=== PATIENT | female | born 1960 | race Caucasian/White ===

== ENCOUNTER 2018-05-03 17:47 | Emergency (ER) | payer OTHER ==
--- NOTE | 2018-05-03 18:14 | EDM.PDOC ---
ED HPI GENERAL MEDICAL PROBLEM - General Chief Complaint: Trauma Stated Complaint: HEAD INJURY-FELL OFF HORSE Time Seen by Provider: 05/03/18 18:07 Source of Information: Reports: Patient, Family History Limitations: Reports: No Limitations - History of Present Illness INITIAL COMMENTS - FREE TEXT/NARRATIVE: 57-year-old female patient presents to the ED after essentially being thrown from a horse out in [place]. The first time on a horse. She states the horse his legs seem to give out in the horse tumbled propelling her off of the horse and into the ground directly on the top of her head. She believes it knocked the wind out of her but she never lost consciousness. He has a very tender area on the left parietal occipital lobe of her head. She was placed in a cervical collar upon arrival in the ED. She has pain in her left wrist particularly over the scaphoid area and in her left shoulder over the A-C joint. Onset: Today Onset Date: 05/03/18 Onset Time: 16:40 Duration: Hour(s): Location: Reports: Head, Neck, Lower Extremity, Left (Shoulder and wrist.) Quality: Reports: Ache, Throbbing Severity: Mild (Patient has taken some Tylenol after injury.) Improves with: Reports: Rest Worsens with: Reports: Movement Context: Reports: Trauma (Thrown from a horse when the horse stumbled and lost it spelled propelling her Foote's off the horse directly onto her head i.e. axial traction.). Denies: Activity, Exercise, Lifting, Sick Contact Associated Symptoms: Reports: No Other Symptoms. Denies: Confusion, Chest Pain , Cough, cough w sputum, Diaphoresis, Fever/Chills, Loss of Appetite, Malaise, Nausea/Vomiting, Rash, Seizure, Shortness of Breath, Syncope Treatments [employer]ESSION[employer]: Reports: Acetaminophen Head Pain Score (Numeric/FACES): 7 - Related Data Allergies Allergy/AdvReac Type Severity Reaction Status Date / Time Penicillins Allergy Hives Verified 05/03/18 18:01 droperidol [From Inapsine] AdvReac Tremors Verified 05/04/18 12:44 Home Meds: Home Meds metFORMIN [Glucophage XR] 500 mg PO DAILY 05/03/18 [History] Past Medical History Musculoskeletal History: Reports: Other (See Below) Other Musculoskeletal History: fusion of lower back, fusion of neck Endocrine/Metabolic History: Reports: Diabetes, Type II (Currently on diet and metformin.) - Past Surgical History GI Surgical History: Reports: Cholecystectomy Female Surgical History: Reports: Hysterectomy Musculoskeletal Surgical History: Reports: Other (See Below) Other Musculoskeletal Surgeries/Procedures:: left hip surgery due to tendon issues Social & Family History - Tobacco Use Smoking Status *Q: Never Smoker - Caffeine Use Caffeine Use: Reports: Coffee, Soda - Recreational Drug Use Recreational Drug Use: No Review of Systems - Review of Systems Review Of Systems: See Below Constitutional: Denies: Diaphoresis, Fever, Weakness, Other Eyes: Reports: No Symptoms Ears: Reports: No Symptoms Nose: Reports: No Symptoms Mouth/Throat: Reports: No Symptoms, Other Respiratory: Reports: No Symptoms (Mid did not spit up any blood.) Cardiovascular: Reports: No Symptoms GI/Abdominal: Reports: Other (Occasional problems with GERD.) Genitourinary: Reports: No Symptoms Musculoskeletal: Reports: Back Pain, Joint Pain (Chronic low back pain. Surgery changes knees and hips and neck.) Skin: Reports: No Symptoms Neurological: Reports: No Symptoms Psychiatric: Reports: No Symptoms ED EXAM, GENERAL - Physical Exam Exam: See Below Exam Limited By: No Limitations General Appearance: Alert, WD/WN, Mild Distress, Other (C-collar was placed by triage nurse.) Eye Exam: Right Eye: PERRL (Had some pain on looking to the left and upwards.), Bilateral Eye: Normal Inspection Ears: Normal TMs Throat/Mouth: Normal Inspection, Normal Lips, Normal Teeth, Normal Oropharynx, Other (No injury to her teeth or tongue. Temporomandibular joints and mandible appear to be normal no malocclusion) Head: Other (She is very tender to touch along the parietal occipital lobe on the vertex of the scalp. There is a scalp hematoma present. No open lacerations or bleeding.) Neck: Other (Anterior neck is normal with normal laryngeal crepitus. C-collar has been placed and will not be removed and chills C-spine is cleared by CT exam.). No: Lymphadenopathy (L), Lymphadenopathy (R) Respiratory/Chest: Chest Non-Tender (Mild tachypnea at rest.), Respiratory Distress, Other (Compression of the ribs and sternum did not cause any pain. Clavicles are intact.) Cardiovascular: Normal Peripheral Pulses, Regular Rate, Rhythm, No Edema, No Gallop, No Murmur, No Rub Peripheral Pulses: 2+: Posterior Tibial (L), Posterior Tibial (R), Dorsalis Pedis (L), Dorsalis Pedis (R) GI/Abdominal: Normal Bowel Sounds, Soft, Non-Tender, No Organomegaly, No Abnormal Bruit, No Mass, Pelvis Stable Back Exam: Other (Well-healed multiple scars lower lumbar spine midline. She states she's had 4 separate surgeries on her back. Has no pain in her back or thoracic spine to palpation there is no abrasions or contusions to her back.) Extremities: Other (No injuries to the right upper extremity including the hand the wrist to elbow and the shoulder. On the left there is tenderness at the wrist particularly over the scaphoid bone in the anatomical snuffbox and there is an abrasion and pain over the acromioclavicular joint and superior scapula on the left side.) Neurological: Alert, Oriented, CN II-XII Intact, Normal Cognition, No Motor/ Sensory Deficits Psychiatric: Normal Affect, Normal Mood Skin Exam: Warm, Dry, Intact, Normal Color, No Rash Course - Vital Signs Last Recorded V/S: Last Vital Signs Temp 36.8 C 05/03/18 17:55 Pulse 86 05/03/18 17:55 Resp 20 05/03/18 17:55 BP 168/87 H 05/03/18 17:55 Pulse Ox 98 05/03/18 17:55 - Orders/Labs/Meds Meds: Medications Discontinued Medications Generic Name Dose Route Start Last Admin Trade Name Adali PRN Reason Stop Dose Admin Ondansetron HCl 4 mg 05/03/18 19:10 05/03/18 19:16 Zofran Odt PO 05/03/18 19:11 4 mg ONETIME ONE Administration Oxycodone/Acetaminophen 2 tab 05/03/18 19:09 05/03/18 19:16 Percocet 325-5 Mg PO 05/03/18 19:10 2 tab ONETIME ONE Administration - Radiology Interpretation Free Text/Narrative:: 57-year-old female presents to the ED after being essentially thrown from a horse. Chest first him on a horse out in [place]. She states the horse was riding stumbled and propelled her forward off the horse directly onto her head. There was no loss of consciousness. She states she injured the top part of her left side of her head and she had cervical neck pain upon arrival in the ED therefore she was placed in a c-collar by the triage nurse. She has pain to the left shoulder particularly over the acromioclavicular joint. She has pain in the left distal wrist particularly over the scaphoid bone. No injuries evident to the lower extremities back or ribs. Right upper extremity is also within normal limits. Plan CT head CT cervical spine x-ray left shoulder x-ray left wrist to be done. At the time of my exam she felt she didn't need anything further for pain. - Re-Assessments/Exams Free Text/Narrative Re-Assessment/Exam: 05/03/18 19:10 CT of the head is done. It reveals a left frontal parietal hematoma without any fractures of the skull or intracranial bleeding or mass effect. CT of the cervical spine reveals loss of the normal lordotic curvature. There are no perched or locked facets of the craniocervical relationship is normal there is a fusion at C6-C7 which the patient admits she had bone grafting in this area. There are severe degenerative changes within the spine multilevel bilateral foraminal stenosis. No fractures identified. X-rays of the left shoulder reveal no fractures of the acromioclavicular joint the clavicle or the scaphoid bone. The humeral head is in normal anatomical position without fracture. X-rays of the left wrist reveal no fractures within the hand bones and in particular no scaphoid fracture where she is very tender to touch. Distal radius and ulna are intact. She is having much more pain in her neck at this time. She'll be given Percocet 5/3/25 milligram tabs --2 tabs by mouth now with Zofran 4 mg sublingual to relieve pain and prevent nausea vomiting. Nausea comes in a bit of weight since her injury. She plans on flying home tomorrow. I will give her copies of her x-rays and CT scan to take with her as she is flying home tomorrow. I will write a prescription from the [facility] for Percocet tablets 5/3/25 milligrams strength one or 2 every 4-6 hours needed for pain relief. 20 tablets will be provided. Departure - Departure Time of Disposition: 19:14 Disposition: Home, Self-Care 01 Condition: Fair Clinical Impression: Contusion of left wrist, initial encounter Sprain of cervical neck Qualifiers: Encounter type: initial encounter Qualified Code(s): S13.9XXA - Sprain of joints and ligaments of unspecified parts of neck, initial encounter Contusion of scalp Qualifiers: Encounter type: initial encounter Qualified Code(s): S00.03XA - Contusion of scalp, initial encounter Closed head injury Qualifiers: Encounter type: initial encounter Qualified Code(s): S09.90XA - Unspecified injury of head, initial encounter Contusion of left shoulder Qualifiers: Encounter type: initial encounter Qualified Code(s): S40.012A - Contusion of left shoulder, initial encounter - Discharge Information *PRESCRIPTION DRUG MONITORING PROGRAM REVIEWED*: Not Applicable *COPY OF PRESCRIPTION DRUG MONITORING REPORT IN PATIENT TOREY: Not Applicable Instructions: Contusion, [id number], Head Injury, Adult, [id number] Referrals: PCP,Not In Area [Primary Care Provider] - Forms: ED Department Discharge Additional Instructions: Evaluation in the emergency room today in regards to injuries sustained from a horse accident out in [place]. The horse stumbled and propelled Mae from the back of the horse directly into the ground head first. Landed in a scalp hematoma along the left side of your head. CT does not reveal any skull fractures or intracranial bleeding in the brain. CT of your neck reveals no fractures. There is fusion at C5-C6 from previous bone grafting. There are multilevel degenerative changes in your neck foraminal encroachment of several nerves both sides. No fractures however are identified. X-rays of your left shoulder show no injuries to the acromioclavicular joint the shoulder blade or the humeral head. X-rays of the left wrist also do not reveal any broken bones. Copies of your x-rays and CTs will be sent home with you for your doctor to review if necessary. Expect her neck to be become much more stiff and sore over the next 2-3 days. Then gradual improvement should occur over the next week to 10 days. Rest Aleve 2 tablets every 8 hours to relieve pain and inflammation. Percocet tablets 5/325 milligrams strength one or 2 every 4-6 hours necessary for the next few days until the acute pain settles. Ice pack to the back of your neck one half hour out of every 4 hours for the next 2 days would be worthwhile as well as application to left shoulder if needed.
[2018-05-03] MEDS ORDERED: Acetaminophen/oxyCODONE 325-5 MG Tab PO ONE (19:09)
[2018-05-03] MEDS ORDERED: Ondansetron 4 MG Tab.DIS PO ONE (19:10)
--- NOTE | 2018-05-04 07:09 | CT ---
CT cervical spine Technique: Multiple axial sections were obtained from above C1 inferiorly to the top of T2. Reconstructed sagittal and coronal images were reviewed. Comparison: No prior cervical spine imaging. Findings: Interbody vertebral fusion is seen at C6-C7. Severe disc space narrowing is noted at C4-C5 and C5-C6 with posterior spurring and anterior osteophytes. Scattered degenerative change is noted throughout the apophyseal joints which is worse on the left side. Mild right sided neural foraminal stenosis noted at C3-C4. Moderate to severe neural foraminal stenosis is noted at C4-C5. Mild central canal stenosis is noted at C4-C5. Other neural foramina are patent. No fracture is seen. No abnormal subluxation is noted. Impression: 1. Degenerative change as noted above. 2. Nothing acute is seen on CT study of cervical spine. Diagnostic code #3 I agree with preliminary report issued by [facility] ([facility] preliminary report dictated on 05/03/18, 7:58 PM Central Time)
--- NOTE | 2018-05-04 08:09 | CT ---
Head CT Technique: Multiple axial sections through the brain were obtained. Intravenous contrast was not utilized. Comparison: No previous intracranial imaging. Findings: Ventricles along with basal cisterns and sulci over the convexities are within normal limits for the patient's age. No abnormal parenchymal densities are seen. No evidence of intracranial hemorrhage. No midline shift or mass effect is seen. Bone window settings were reviewed which show no acute calvarial abnormality. Impression: 1. Nothing acute is seen on noncontrast head CT exam. Diagnostic code #1 I agree with preliminary report issued by [facility] ([facility] preliminary report dictated on 05/03/18, 7:52 PM Central Time)
--- NOTE | 2018-05-04 08:09 | CR ---
Left wrist: Four views of the left wrist were obtained as well as navicular view. Comparison: No previous study. Minimal calcification off the tip of the ulnar styloid process is seen which is incidental. Joint spaces are preserved. No fracture or other bony abnormality is seen. Impression: 1. Incidental finding. Nothing acute is seen. Diagnostic code #2
--- NOTE | 2018-05-04 08:09 | CR ---
Left shoulder: Three views of the left shoulder were obtained. Mild joint space narrowing is noted within the acromioclavicular joint. Glenohumeral joint is normal. No fracture or other bony abnormality is seen. Impression: 1. Slight joint space narrowing within the acromioclavicular joint. 2. Left shoulder study is otherwise unremarkable. Diagnostic code #2
== END 2018-05-03 19:34 | disposition home or self-care (01) ==
LOC: JD.ED 17:47
DX: S09.90XA Unspecified injury of head, initial encounter (principal); S13.9XXA Sprain of joints and ligaments of unspecified parts of neck, initial encounter; S60.212A Contusion of left wrist, initial encounter; S00.03XA Contusion of scalp, initial encounter; S40.012A Contusion of left shoulder, initial encounter; E11.9 Type 2 diabetes mellitus without complications; V80.010A Animal-rider injured by fall from or being thrown from horse in noncollision accident, initial encounter; Z88.0 Allergy status to penicillin; Z88.8 Allergy status to other drugs, medicaments and biological substances; Z79.84 Long term (current) use of oral hypoglycemic drugs
CPT/HCPCS: 70450; 72125; 73030; 73110; 99284; A9270